=== PATIENT | female | born 2000 | race Caucasian/White ===

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

== ENCOUNTER 2019-05-02 09:52 | Emergency (ER) | payer MEDICAID ==
[~2019-05-02] VITALS: Ht 152.4 cm; Wt 71.0 kg
[2019-05-02 10:06] VITALS: BP 119/57
--- NOTE | 2019-05-02 10:10 | NUR ---
NO ANSWER IN TO [id number]
--- NOTE | 2019-05-02 10:27 | NUR ---
PT GIVEN URINE CUP AND IN RESTROOM
--- NOTE | 2019-05-02 10:50 | NUR ---
LATE ENTRY FOR 1045: LAYOUT FORMER. PT AMBULATORY WITH STEADY GAIT TO GUZMAN AT THIS TIME.
[2019-05-02] MEDS ORDERED: AZITHROMYCIN 500 MG TABLET PO ONE (11:30)
[2019-05-02] MEDS ORDERED: CEFTRIAXONE 250 MG IM ONE (11:30)
[2019-05-02] MEDS ORDERED: LIDOCAINE-MPF 1%, 2ML ONE (12:20)
[2019-05-02] MEDS ORDERED: CEFTRIAXONE 250 MG ONE (12:21)
[2019-05-02] MEDS ORDERED: AZITHROMYCIN 250 MG TABLET ONE (12:21)
[2019-05-02] MEDS ORDERED: metroNIDAZOLE 500 MG TABLET ONE (13:21)
[2019-05-02] MEDS ORDERED: metroNIDAZOLE 500 MG TABLET PO ONE (13:30)
== END 2019-05-02 13:35 | disposition home or self-care (01) ==
LOC: ED 11:02
DX: N89.8 Other specified noninflammatory disorders of vagina (principal); F17.200 Nicotine dependence, unspecified, uncomplicated
CPT/HCPCS: 87491; 87591; 96372; 99283; J0696

== ENCOUNTER 2019-05-30 12:09 | Emergency (ER) | payer MEDICAID ==
[~2019-05-30] VITALS: Ht 152.4 cm; Wt 68.0 kg
[2019-05-30 13:12] VITALS: BP 112/61
== END 2019-05-30 13:40 | disposition left against medical advice (07) ==
LOC: ED 13:38
DX: Z53.21 Procedure and treatment not carried out due to patient leaving prior to being seen by health care provider (principal)

== ENCOUNTER 2019-06-22 16:37 | Emergency (ER) | payer MEDICAID ==
[~2019-06-22] VITALS: Ht 162.6 cm; Wt 75.3 kg
--- NOTE | 2019-06-22 16:43 | NUR ---
Patient called from lobby for triage, no answer.
[2019-06-22 17:08] VITALS: BP 143/86
--- NOTE | 2019-06-22 17:08 | NUR ---
PT C/O VB AND CRAMPING AFTER IUD PLACED THREE WEEKS AGO. CONNECTED TO MONITORING. CALL LIGHT IN REACH. AWAITING ORDERS AT THIS TIME.
[2019-06-22 17:29] LABS: HCG UR SG 1.022 (1.003-1.030)
--- NOTE | 2019-06-22 17:48 | NUR ---
ALL RESULTS ARE BACK AT THIS TIME. CHART UP FOR RECHECK.
== END 2019-06-22 18:03 | disposition home or self-care (01) ==
LOC: ED 17:55
DX: N93.9 Abnormal uterine and vaginal bleeding, unspecified (principal)
CPT/HCPCS: 76856; 81025; 99284

== ENCOUNTER 2019-06-28 17:21 | Emergency (ER) | payer MEDICAID ==
[~2019-06-28] VITALS: Ht 152.4 cm; Wt 75.4 kg
[2019-06-28 17:45] VITALS: BP 125/82
--- NOTE | 2019-06-28 18:14 | NUR ---
Pt here for suture removal and staple. All removed without difficulty.
--- NOTE | 2019-06-28 18:15 | NUR ---
Patient/Caregiver given discharge instructions and they have confirmed that they understand the instructions. Patient ambulatory with steady gait.
[2019-06-28] MEDS ORDERED: IBUPROFEN 200 MG TABLET ONE (18:18)
[2019-06-28] MEDS ORDERED: IBUPROFEN 200 MG TABLET PO ONE (18:30)
== END 2019-06-28 18:23 | disposition home or self-care (01) ==
LOC: ED 18:17
DX: S01.511D Laceration without foreign body of lip, subsequent encounter (principal); F17.200 Nicotine dependence, unspecified, uncomplicated; X58.XXXD Exposure to other specified factors, subsequent encounter
CPT/HCPCS: 99282

== ENCOUNTER 2019-12-21 10:11 | Emergency (ER) | payer MEDICAID ==
[~2019-12-21] VITALS: Ht 152.4 cm; Wt 78.7 kg
[2019-12-21 10:18] VITALS: BP 120/74
--- NOTE | 2019-12-21 10:36 | NUR ---
foul smell/itching x4 days after unprotected sex, hx std last year; trichomoniasis and gonorrhea. ara presley at bedside to do pelvic. as
[2019-12-21] MEDS ORDERED: CEFTRIAXONE 250 MG ONE (10:55)
[2019-12-21] MEDS ORDERED: AZITHROMYCIN 500 MG TABLET ONE (10:55)
[2019-12-21] MEDS ORDERED: CEFTRIAXONE 250 MG IM ONE (11:00)
[2019-12-21] MEDS ORDERED: AZITHROMYCIN 500 MG TABLET PO ONE (11:00)
--- NOTE | 2019-12-21 11:07 | NUR ---
meds per aug ua to lab nad. as
[2019-12-21 11:16] LABS: CLUE CELLS NONE SEEN (NONE SEEN); WET PREP WBCS FEW (FEW)
[2019-12-21 11:17] LABS: HCG UR SG 1.029 (1.003-1.030); MICROSCOPIC NOT IND
== END 2019-12-21 11:43 | disposition left against medical advice (07) ==
LOC: ED 11:37
DX: B37.3 Candidiasis of vulva and vagina (principal); F17.200 Nicotine dependence, unspecified, uncomplicated
CPT/HCPCS: 81003; 81025; 87210; 87491; 87591; 87808; 96372; 99283; J0696

== ENCOUNTER 2020-01-16 21:17 | Emergency (ER) | payer MEDICAID ==
--- NOTE | 2020-01-16 21:28 | NUR ---
SHOE CLEANER: CALLED PT NO ANSWER
--- NOTE | 2020-01-16 21:39 | NUR ---
HAZARD WASTE HANDLER: CALLED PT NO ANSWER
--- NOTE | 2020-01-16 21:59 | NUR ---
RADHA RN: CALLED NO ANSWER
== END 2020-01-16 22:06 | disposition left against medical advice (07) ==
LOC: ED 21:50
DX: Z53.21 Procedure and treatment not carried out due to patient leaving prior to being seen by health care provider (principal)

== ENCOUNTER 2020-02-22 18:22 | Emergency (ER) | payer MEDICAID ==
[~2020-02-22] VITALS: Ht 152.4 cm; Wt 73.8 kg
[2020-02-22 18:30] VITALS: BP 121/81
--- NOTE | 2020-02-22 19:02 | NUR ---
Patient/Caregiver given discharge instructions and they have confirmed that they understand the instructions. Patient ambulatory with steady gait.
== END 2020-02-22 19:05 | disposition home or self-care (01) ==
LOC: ED 19:00
DX: H10.023 Other mucopurulent conjunctivitis, bilateral (principal)
CPT/HCPCS: 99283

== ENCOUNTER 2020-11-04 16:12 | Emergency (ER) | payer MEDICAID ==
[~2020-11-04] VITALS: Ht 152.4 cm; Wt 79.7 kg
[~2020-11-04 16:12] MED LIST changes: -OXYC-302 PO; +OXYC1TAB14 PO
[2020-11-04 16:29] VITALS: BP 135/73
--- NOTE | 2020-11-04 16:51 | NUR ---
SWABBED FOR STREP IN [facility]
[2020-11-04] MEDS ORDERED: DEXAMETHASONE 4 MG TABLET ONE (17:19)
[2020-11-04] MEDS ORDERED: DEXAMETHASONE 4 MG TABLET PO ONE (17:30)
== END 2020-11-04 18:10 | disposition home or self-care (01) ==
LOC: ED 18:04
DX: J02.8 Acute pharyngitis due to other specified organisms (principal); B97.89 Other viral agents as the cause of diseases classified elsewhere
CPT/HCPCS: 87081; 87880; 99283

== ENCOUNTER 2020-11-30 13:47 | Emergency (ER) | payer MEDICAID ==
[~2020-11-30] VITALS: Ht 152.4 cm; Wt 78.2 kg
--- NOTE | 2020-11-30 14:34 | NUR ---
BREAK RN: CONTACT WITH PT. 20 YR OLD FEMALE HERE WITH C/O "I JUST WANT TO MAKE SURE I DONT HAVE A BLADDER INFECTION, UTI OR ANYTHING. HAVING BURNING, FREQUENCY AND URGENCY. CONCERN ABOUT STD. RECENTLY HAD UNPRETECTED SEX"
--- NOTE | 2020-11-30 14:58 | NUR ---
REPORT TO NINO LOWE.
[2020-11-30] MEDS ORDERED: CEFTRIAXONE 1,000 MG IM ONE (15:00)
[2020-11-30] MEDS ORDERED: AZITHROMYCIN 500 MG TABLET PO ONE (15:00)
[2020-11-30 15:02] LABS: MICROSCOPIC NOT IND
[2020-11-30 15:56] LABS: CLUE CELLS NONE SEEN (NONE SEEN); WET PREP WBCS NONE SEEN (FEW)
[2020-11-30 16:37] VITALS: BP 122/80
[2020-11-30] MEDS ORDERED: AZITHROMYCIN 250 MG TABLET ONE (17:11)
[2020-11-30] MEDS ORDERED: CEFTRIAXONE 1,000 MG ONE (17:12)
--- NOTE | 2020-11-30 17:39 | NUR ---
Patient given discharge instructions and they have confirmed that they understand the instructions. Patient ambulatory with steady gait. NAD, all questions answered appropriately, denies additional needs at this time. No personal belongings left in room after discharge.
== END 2020-11-30 17:40 | disposition home or self-care (01) ==
LOC: ED 15:54
DX: R30.0 Dysuria (principal)
CPT/HCPCS: 76830; 81003; 81025; 87210; 87491; 87591; 87808; 96372; 99284; J0696

== ENCOUNTER 2021-01-27 12:41 | Emergency (ER) | payer MEDICAID ==
[~2021-01-27] VITALS: Ht 152.4 cm; Wt 81.0 kg
[2021-01-27 13:09] VITALS: BP 103/79
--- NOTE | 2021-01-27 14:02 | NUR ---
PT NOT IN ROOM. WRIST BAND LEFT ON BED. UNABLE TO LOCATE PT IN THE DEPT.
== END 2021-01-27 14:08 | disposition left against medical advice (07) ==
LOC: ED 13:00
DX: R53.1 Weakness (principal); Z53.21 Procedure and treatment not carried out due to patient leaving prior to being seen by health care provider

== ENCOUNTER 2021-02-28 18:41 | Emergency (ER) | payer MEDICAID ==
[~2021-02-28] VITALS: Ht 152.4 cm; Wt 81.1 kg
[~2021-02-28 18:41] MED LIST changes: +OXYC1TAB12 PO; -OXYC1TAB14 PO
[2021-02-28 18:53] VITALS: BP 132/76
--- NOTE | 2021-02-28 19:00 | NUR ---
RAPID COVID SWAB WALKED DOWN TO LAB AT THIS TIME.
== END 2021-02-28 19:58 | disposition home or self-care (01) ==
LOC: ED 19:45
DX: U07.1 COVID-19 (principal); F17.210 Nicotine dependence, cigarettes, uncomplicated
CPT/HCPCS: 87635; 99406